=== PATIENT | male | born 1985 | race African-American/Black ===

== ENCOUNTER 2017-03-02 09:18 | Outpatient (RCR) | payer MEDICAID, SELFPAY ==
--- NOTE | 2017-03-02 10:24 | HMH.PTOPEV ---
Rehab Outpatient Evaluation Rehab OP Evaluation Start: 03/02/17 10:08 Freq: Status: Active Protocol: Document 03/02/17 10:08 ORTEGA (Rec: 03/02/17 10:24 PHODENVER [id number]) Electronically Signed By Nomi Clark, PT 03/02/17 10:08 Outpatient Therapy Subjective History Subjective History Pt presents with c/o pain in left knee, mostly posterior, x ~ 1 yr overall, but worse x 2 -3 mos with insidious onset of symptoms. He reports discomfort when running or jumping, not really pain, I just feel like I can't jump as high as I should be able to. He also reports pain is much worse the day after playing sports, especially after sitting for long periods. No significant PMH. Chief Complaint Pain Weakness Symptom Type Ache Symptoms Aggravated By Physical Activity Prior Functional Limitations None Current Functional Limitations Recreation Activity Symptom Description Intermittent Activity Dependent Level of pain today (0-10) 0 Pain scale - at its worst (0-10) 7 Hip/Knee Eval Gait Observation General Gait Pattern Observation No Deviations/Normal MMT left Hip Strength Reason Not Measured WFL Knee Extension Strength Grade 5 Normal Knee Flexion Strength Grade 4 Good Special Tests Knee Anterior Drawer Test Negative Left Knee Bounce Home Test Negative Left Damian 90/90 Test (PCL) Negative Left Knee Anterior Choco Test Negative Left Knee Pivot Shift Test Negative Left Knee Valgus Stress Test Negative Left Knee Varus Stress Test Negative Left Knee Bernie Test Negative Left Outpatient Therapy Assessment Impairments Problems/Impairmments Impaired Strength Impaired Recreational Activities Impaired Running Impaired Jumping Subjective C/O Pain Impaired Self Care/Self Management Prognosis Rehab Potential Good Clinical Impression Consistent with Diagnosis Yes Short Term Goals Number of Weeks 4 Increase Strength Yes: 4+/5 throughout left LE Return to Recreational Activities Yes Decrease Subjective C/O Pain
== END 2017-03-02 09:19 | disposition home or self-care (01) ==
LOC: PT 09:18
PROVIDERS: Family Provider Family Medicine; PCP Family Medicine; Visit Provider Family Medicine
DX: M25.562 Pain in left knee (principal)

== ENCOUNTER → 2018-11-23 10:01 | Outpatient (CLI) | payer OTHER, SELFPAY ==
[2018-11-24 18:58] LABS: Testosterone,Total 599 ng/dL (264-916)
== END ==
PROVIDERS: Visit Provider Family Medicine
DX: R68.82 Decreased libido (principal)
CPT/HCPCS: 36415; 84403

== ENCOUNTER 2020-05-02 16:53 | Emergency (ER) | payer OTHER, SELFPAY ==
[2020-05-02 17:10] VITALS: BP 145/95; PULSE 80; RESP 20; TEMP 35.9; O2SAT 98; BMI 26.7
--- NOTE | 2020-05-02 17:44 | HMH.EDUTC ---
[facility] [place] Disposition Clinical Impression: Strep pharyngitis Disposition: Home, Self-Care Condition on Discharge: Good Instructions: Strep Throat, DI for Strep Throat, Amoxicillin Additional Instructions: *If you did not take Penicillin shot or was unable to, start taking antibiotic immediately and make sure that you take it for the FULL length of time although you should start to feel better in 24-48 hours *change toothbrush and toothpaste 24-48 hours after starting to take antibiotics so you do not reinfect yourself Monitor Temp. Tylenol and/or Ibuprofen as needed. ER if fever is no less than 101 despite alternating Tylenol and Ibuprofen * Encourage fluids, water, Gatorade, powerade, pedialyte if infant/toddler/or child *Cold fluids, popsicles and ice cream may feel good on his throat Take medication as prescribed Return if needed Straight to ER if any life threatening symptoms Referrals: Steven Velasquez MD [Primary Care Provider] - As needed Time of Disposition: 21:44 Medical Decision Making - Josh Inquiry Pt receiving controlled substance: No Josh was queried for this patient: No Vital Signs: 05/02/20 17:10 05/02/20 18:13 Temperature 96.7 F L 96.7 F L Temperature Source Temporal Artery Scan Pulse Rate 80 Pulse Rate [Right Brachial] 80 Respiratory Rate 20 20 Blood Pressure 145/95 H Blood Pressure [Right Arm] 145/95 H Blood Pressure Mean [Right Arm] 111 Blood Pressure Source [Right Arm] Automatic Cuff Blood Pressure Position [Right Arm] Sitting 02 Sat by Pulse Oximetry 98 Oxygen Delivery Method Room Air - Lab Data Lab results reviewed: Yes: I reviewed the patient's lab results. Lab Results 05/02/20 16:55: Strep Scn Rapid Clinic Positive A Orders (Tests/Meds): ED MEDICATIONS Discontinued Medications Generic Name Dose Route Start Last Admin Trade Name Freq PRN Reason Stop Dose Admin Penicillin G Benzathine 1,200,000 unit 05/02/20 17:51 05/02/20 18:07 Penicillin G Benzathine 1,200,000 Units/2ml Syringe IM 05/02/20 17:52 1,200,000 unit ONCE ONE Administration Protocol [facility] [place] HPI - General Stated complaint: sore throat Time Seen by Provider: 05/02/20 17:44 Mode of Arrival: Ambulatory Source of Information: Patient Limitations: No Limitations Description of Symptoms (Recalled from Triage Doc. by RN): PATIENT C/O COUGH, RUNNY NOSE AND SORE THROAT. EXPOSURE TO STREP HEENT Symptoms (Recalled from RN notes): Yes Resp Symptoms (Recalled from RN notes): No Skin Symptoms (Recalled from RN notes): No MS Symptoms (Recalled from RN notes): No Functional Status (Recalled from RN notes): WNL - History of Present Illness Provider Complaint: Patient states that he was recently around family member that tested positive for strep throat States that his throat has been hurting and irritated and had a little cough and over all not feeling - Related Data Home Medications Medication Instructions Recorded Confirmed Vilazodone HCl [Viibryd 10mg 10 mg PO DAILY 05/02/20 05/02/20 Tablet] Allergies Allergy/AdvReac Type Severity Reaction Status Date / Time Sulfa (Sulfonamide Allergy Unknown Verified 08/28/17 17:37 Antibiotics) [SULFA (SULFONAMIDE ANTIBIOTICS)] - Worker's Comp Is this a Worker's Comp case?: No [facility] History - Hepatitis A Screen Drug use history?: No High risk sexual behaviors?: No History of sexually transmitted infection?: No Currently employed?: No Childcare worker?: No Do you have indoor plumbing?: Yes Do you have electricity?: Yes Attestation statement:: This patient has been screened for Hepatitis A risk factors. I have reviewed the patient's past medical history: Yes Medical History: Denies:: Anxiety, Depression, Diabetes Mellitus Type 1, Diabetes Mellitus Type 2 Laterality Cases: Bilateral: Tonsillectomy Other Surgeries: Yes: Other (tonsillectomy, vascectomy) - Social History Smoking Status: Never smoker Al
[2020-05-02 17:47] LABS: UTC Strep Screen (Rapid) Positive (Negative)
[2020-05-02 18:13] VITALS: BP 145/95; PULSE 80; RESP 20; TEMP 35.9; O2SAT 98
== END 2020-05-02 18:32 | disposition home or self-care (01) ==
PROVIDERS: Emergency Provider Nurse Practitioner; PCP Family Medicine
DX: J02.0 Streptococcal pharyngitis (principal); Z88.0 Allergy status to penicillin
CPT/HCPCS: 87880; 96372; 99202; G0463; J0561

== ENCOUNTER 2021-10-03 11:03 | Emergency (ER) | payer OTHER, SELFPAY ==
[2021-10-03 11:40] VITALS: BP 133/86; PULSE 104; RESP 19; TEMP 37.2; O2SAT 96; BMI 19.8
[2021-10-03 11:53] LABS: Adenovirus,PCR Not Detected (NotDetected); Bordetella Pertussis Not Detected (NotDetected); Chlamydophila Pneumoniae, PCR Not Detected (NotDetected); Coronavirus 19, PCR Not Detected (NotDetected); Coronavirus 229E Not Detected (NotDetected); Coronavirus NL63 Not Detected (NotDetected); Coronavirus OC43 Not Detected (NotDetected); Coronovirus HKU1,PCR Not Detected (NotDetected); Human Metapneumovirus Not Detected (NotDetected); Influenza A, PCR Not Detected (NotDetected); Influenza AH1, 2009 Not Detected (NotDetected); Influenza AH1, PCR Not Detected (NotDetected); Influenza AH3,PCR Not Detected (NotDetected); Influenza B, PCR Not Detected (NotDetected); Mycoplasma Pneumoniae, PCR Not Detected (NotDetected); Parainfluenza 1, PCR Not Detected (NotDetected); Parainfluenza 2, PCR Not Detected (NotDetected); Parainfluenza 3, PCR Not Detected (NotDetected); Parainfluenza 4, PCR Not Detected (NotDetected); Respiratory Syncytial Virus Not Detected (NotDetected)
[2021-10-03 12:00] LABS: UTC Strep Screen (Rapid) Positive (Negative)
--- NOTE | 2021-10-03 12:10 | HMH.EDUTC ---
[facility] [place] Disposition Clinical Impression: Strep pharyngitis Disposition: Home, Self-Care Condition on Discharge: Good Instructions: Strep Throat, DI for Strep Throat Additional Instructions: *Monitor Temp, Over the counter Motrin or Tylenol as directed/as needed Tylenol every 4 hours and Motrin every 6 hours (as long as your family doctor has told you that you can take it) for fever or pain. and straight to ER if unable to lower temp less than 101.0 after medication given *Warm salt water gargles may help to soothe the throat *Throat Lozenges *Warm fluids like tea with honey may help to soothe the throat *Sleep elevated *Humidifier/Vaporizer *If you did not take Penicillin shot or was unable to, start taking antibiotic immediately and make sure that you take it for the FULL length of time although you should start to feel better in 24-48 hours *change toothbrush and toothpaste 24-48 hours after starting to take antibiotics so you do not reinfect yourself Monitor Temp. Tylenol and/or Ibuprofen as needed. ER if fever is no less than 101 despite alternating Tylenol and Ibuprofen * Encourage fluids, water, Gatorade, powerade, pedialyte if /toddler/or child *Cold fluids, popsicles and ice cream may feel good on his throat Follow up IMMEDIATELY for new or worsening symptoms or no Noticeable improvement over the next 48-72 hours. 911 for difficulty breathing or swallowing You were tested for today for COVID19 your test result should be back in the next 24-48 hours, you may check your results on the [facility] My Health Portal Make sure to take your Vitamins Vit. C Vit D and Zinc if you can take them Prescriptions: methylPREDNISolone [Medrol 4mg tab] 4 mg PO DIRECTED #21 tab Transmission Status: Pending to [facility] Azithromycin [Z-Charlie 250mg Tab] 250 mg PO DIRECTED #6 tab Transmission Status: Pending to [facility] Referrals: Alicia Cline MD [Primary Care Provider] - As needed Forms: Work/School Release Medical Decision Making - Josh Inquiry Pt receiving controlled substance: No Josh was queried for this patient: No Vital Signs: 10/03/21 11:40 Temperature 98.9 F Temperature Source Oral Pulse Rate [Right Brachial] 104 H Respiratory Rate 19 Blood Pressure [Right Arm] 133/86 Blood Pressure Mean [Right Arm] 101 Blood Pressure Source [Right Arm] Automatic Cuff Blood Pressure Position [Right Arm] Sitting 02 Sat by Pulse Oximetry 96 Oxygen Delivery Method Room Air - Lab Data Lab results reviewed: Yes: I reviewed the patient's lab results. Lab Results 10/03/21 11:20: Strep Scn Rapid Clinic Positive A Orders (Tests/Meds): ORDERS Category Date Time Status Full Resp Panel w/COVID ([facility]) Routine Lab 10/03/21 11:20 Received [facility] [place] HPI - General Stated complaint: itchy throat, cough, phlem is dark yellow&bloody Time Seen by Provider: 10/03/21 12:10 Mode of Arrival: Ambulatory Source of Information: Patient Limitations: No Limitations Description of Symptoms (Recalled from Triage Doc. by RN): PATIENT C/O SORE THROAT AND CONGESTION HEENT Symptoms (Recalled from RN notes): Yes Resp Symptoms (Recalled from RN notes): No Skin Symptoms (Recalled from RN notes): No MS Symptoms (Recalled from RN notes): No Functional Status (Recalled from RN notes): WNL - History of Present Illness Provider Complaint: Patient states that he has been having sore throat, sinus congestion and pressure and cough States that today he was feeling worse so he came in to get checked out - Related Data Home Medications Medication Instructions Recorded Confirmed Vilazodone HCl [Viibryd 10mg 10 mg PO DAILY 05/02/20 05/02/20 Tablet] Previous Rx's Medication Instructions Recorded Azithromycin [Z-Charlie 250mg Tab] 250 mg PO DIRECTED #6 tab 10/03/21 methylPREDNISolone [Medrol 4mg 4 mg PO DIRECTED #21 tab 10/03/21 tab] Allergies Allergy/AdvReac Type Severity Reaction Statu
[2021-10-03 12:27] VITALS: BP 133/86; PULSE 104; RESP 19; TEMP 37.2; O2SAT 96
[2021-10-04 00:53] LABS: Rhinovirus/Enterovirus Detected (NotDetected)
== END 2021-10-03 12:30 | disposition home or self-care (01) ==
PROVIDERS: Emergency Provider Nurse Practitioner; PCP Family Medicine
DX: J02.0 Streptococcal pharyngitis (principal)
CPT/HCPCS: 87581; 87632; 87798; 87880; 99212; C9803; G0463; U0003; U0005

== ENCOUNTER 2023-07-30 10:56 | Emergency (ER) | payer OTHER, SELFPAY ==
--- NOTE | 2023-07-30 11:20 | EXP.UTC ---
Discharge Plan Disposition Patient Disposition: Home, Self-Care Condition: Good Prescriptions Prescriptions: New prednisone 10 mg tablet 10 mg PO BID 3 Days Qty: 6 0RF amoxicillin 875 mg tablet 875 mg PO Q12H Qty: 20 0RF [id number]-[id number] [Bromfed DM] 2-30-10 mg/5 mL Syrup 5 ml PO Q6H PRN (Reason: Cough) Qty: 240 0RF No Action valacyclovir 500 mg tablet 500 mg PO DAILY Referrals Follow up/Referrals: Alicia Cline MD [Primary Care Provider] - See instructions Activity Restrictions/Add. Instructions Additional Instructions/Restrictions: Drink plenty of fluids. Take tylenol or ibuprofen for pain or fever. Take the medications as directed. Follow up with your regular doctor. GO TO THE ER FOR ANY WORSENING SYMPTOMS Don't start the oral steroids (prednisone) until tomorrow since you had the shot her Clinical Impressions Clinical Impression: Pharyngitis, Sinusitis Instructions Patient Instructions: Sinusitis, DI for Sinusitis, Prednisone, Amoxicillin, Dexamethasone Injection Discharge ED Provider: Ronen Morgan [facility] General Stated complaint: sore throat, hoarseness Time Seen by Provider: 07/30/23 11:20 Related Data Home Medications Medication Instructions Recorded Confirmed valacyclovir 500 mg tablet 500 mg PO DAILY 07/30/23 07/30/23 Previous Rx's Medication Instructions Recorded amoxicillin 875 mg tablet 875 mg PO Q12H #20 tabs 07/30/23 [id number]-[id number]-VM 5 ml PO Q6H PRN Cough #240 mL 07/30/23 2 mg-30 mg-10 mg/5 mL oral syrup (Bromfed DM) prednisone 10 mg tablet 10 mg PO BID 3 days #6 tabs 07/30/23 Allergies Allergy/AdvReac Type Severity Reaction Status Date / Time Sulfa (Sulfonamide Allergy Unknown Verified 08/28/17 17:37 Antibiotics) [SULFA (SULFONAMIDE ANTIBIOTICS)] [facility] Disclaimer: The information contained in this section may have been updated after the patient was seen, as this information can be updated by other users. Medical History (Updated 07/30/23 @ 12:03 by Ronen Morgan APRN) Hyperlipidemia Surgical History (Updated 07/30/23 @ 11:45 by Roya Tate RN) History of tonsillectomy Social History Smoking Status: Never smoker alcohol intake: never current occupational status: other Travel in the last 8 weeks: None ROS Obtained: Yes All systems reviewed & no additional complaints except as documented Constitutional Constitutional: Reports poor appetite Eyes Eyes: Reports system reviewed and no additional complaints, except as documented ENT Ears, Nose, Mouth, and Throat: Reports as per HPI Cardiovascular Cardiovascular: Reports system reviewed and no additional complaints, except as documented and Denies chest pain Respiratory Respiratory: Denies shortness of breath, Denies chest congestion, Reports cough, Denies stridor and Denies wheezing Gastrointestinal Gastrointestingal: Reports system reviewed and no additional complaints, except as documented; Denies abdominal pain, diarrhea or vomiting Musculoskeletal Musculoskeletal: Reports system reviewed and no additional complaints, except as documented and Denies arthralgias Integumentary/Breasts Skin/Breast: Reports system reviewed and no additional complaints, except as documented and Denies rash Neurologic Neurologic: Denies paresthesias Allergic/Immunologic Allergic/Immunologic: Denies wheezing Physical Exam General General appearance: alert and in no apparent distress Head Head exam: atraumatic, normocephalic and normal inspection Eye Eye exam: Present normal appearance, PERRL and EOMI ENT ENT exam: Present mucous membranes moist and normal external ear exam Expanded ENT Exam TM/Canal exam: Bilateral TM: erythema and bulging Nose exam: Absent sinus tenderness Mouth exam: Present normal external inspection; Absent drooling Teeth exam: Present normal inspection Throat exam: Present tonsillar erythema, tonsillomegaly and tonsillar exudate Neck Neck exam: Present normal inspection, full ROM and trachea midline; Absent tenderness, meningismus or lymphadenopathy Chest Chest inspection: Present normal inspection and symmetric chest wall rise; Absent tenderness Respiratory Respiratory exam: Present normal lung sounds bilaterally; Absent respiratory distress, wheezes or stridor Cardiovascular Cardiovascular exam: Present regular rate and normal rhythm; Absent systolic murmur or diastolic murmur Abdominal Exam Abdominal exam: Present soft and normal bowel sounds; Absent distention, tenderness, guarding, rebound or rigidity Extremities Exam Extremities exam: Present normal inspection and normal capillary refill; Absent calf tenderness Back Exam Back exam: Present normal inspection and full ROM; Absent tenderness, CVA tenderness (R) or CVA tenderness (L) Neurological Exam Neurological exam: Present alert, oriented X3 and CN II-XII intact Psychiatric Psychiatric exam: Present normal affect and normal mood Skin Skin exam: Present warm, dry, intact and normal color Medical Decision Making Medical Records Medical records reviewed: No I reviewed the patient's medical records. Josh Inquiry Pt receiving controlled substance: No
[2023-07-30 11:25] VITALS: BP 129/82; PULSE 68; RESP 17; TEMP 36.7; O2SAT 97; BMI 28.1
[2023-07-30 11:34] LABS: UTC Strep Screen (Rapid) Negative (Negative)
[2023-07-30 11:55] VITALS: BP 129/82; PULSE 68; RESP 17; TEMP 36.7; O2SAT 97
[2023-07-30] MEDS: DEXAMETHASONE 4MG/ML 1ML VIAL 8 MG IM (11:55)
--- NOTE | 2023-08-08 09:45 | PC.NURSE ---
Reviewed strep confirmation culture which is negative. No further action is required.
== END 2023-07-30 12:09 | disposition home or self-care (01) ==
PROVIDERS: Emergency Provider Nurse Practitioner Family; PCP Family Medicine
DX: J01.90 Acute sinusitis, unspecified; J02.9 Acute pharyngitis, unspecified
CPT/HCPCS: 87880; 96372; 99212; 99214; G0463; J1100

== ENCOUNTER 2024-02-04 14:47 | Emergency (ER) | payer OTHER, SELFPAY ==
[2024-02-04 16:00] VITALS: BP 130/76; PULSE 112; RESP 19; TEMP 37.4; O2SAT 98; BMI 34.4
--- NOTE | 2024-02-04 16:18 | ED_ITS ---
Discharge Plan Disposition Patient Disposition: Home, Self-Care Condition: Good Referrals Follow up/Referrals: Alicia Cline MD [Primary Care Provider] - See instructions Activity Restrictions/Add. Instructions Additional Instructions/Restrictions: *Monitor Temp, Over the counter Motrin or Tylenol as directed/as needed Tylenol every 4 hours and Motrin every 6 hours (as long as your family doctor has told you that you can take it) for fever or pain. and straight to ER if unable to lower temp less than 101.0 after medication given *Warm salt water gargles may help to soothe the throat *Throat Lozenges? *Warm fluids like tea with honey may help to soothe the throat? *Sleep elevated *Humidifier/Vaporizer *Your throat swab was sent for culture. Those results are typically sent to your primary care. Be sure to follow up in 2-3 days with your family doctor/primary care physician if no improvement so they can review those result and treat if necessary. If you don?t have a primary care doctor, I recommend you get one but in the mean time, you will have to return to a walk in clinic Follow up IMMEDIATELY for new or worsening symptoms or no Noticeable improvement over the next 48-72 hours. 911 for difficulty breathing or swallowing Clinical Impressions Clinical Impression: Upper respiratory infection Instructions Patient Instructions: Sore Throat, DI for Cough -- Adult Print Language Print Language: Greenlandic Discharge ED Provider: Cathie Mead [facility] General Stated complaint: cough, bodyaches Mode of Arrival: Ambulatory Source of Information: Patient Limitations: No Limitations Time Seen by Provider: 02/04/24 16:18 Description of Symptoms (Recalled from Triage Doc. by RN): PATIENT C/O COUGH, CHILLS, BODY ACHES, AND SINUS PRESSURE SINCE LAST NIGHT HEENT Symptoms (Recalled from RN notes): Yes Resp Symptoms (Recalled from RN notes): Yes Skin Symptoms (Recalled from RN notes): No MS Symptoms (Recalled from RN notes): No Functional Status (Recalled from RN notes): WNL History of Present Illness Provider Complaint: Patient states that he started last night with sinus congestion and pressure, sore throat, body aches, chills and over all not feeling well States today he was still not feeling any better so he came in to get checked Related Data Allergies Allergy/AdvReac Type Severity Reaction Status Date / Time Sulfa (Sulfonamide Allergy Unknown Verified 08/28/17 17:37 Antibiotics) (SULFA (SULFONAMIDE ANTIBIOTICS)) Worker's Comp Is this a Worker's Comp case?: No [facility] Disclaimer: The information contained in this section may have been updated after the patient was seen, as this information can be updated by other users. Medical History (Updated 02/04/24 @ 16:40 by Adina Stratton APRN) Hyperlipidemia Surgical History (Updated 07/30/23 @ 11:45 by Roya Tate RN) History of tonsillectomy Social History Smoking Status: Never smoker alcohol intake: never current occupational status: other Travel in the last 8 weeks: None Have you lived/traveled outside [place] in past 30 days?: No Contact w/someone who lives/traveled outside [place] past 30 days?: No Exposure to someone with infectious disease in past 14 days?: No Do you have a fever (greater than 100.4 F or 38 C)?: No Have you tested positive for COVID-19: No Exposed to someone with COVID-19 in past 14 days?: No Do you have a sore throat?: No Do you have a cough?: No Do you have any weakness?: No Do you have any diarrhea?: No Are you experiencing any unusual bleeding?: No Do you have any muscle aches/pain?: No Do you have any abdominal pain?: No Are you experiencing loss of taste or smell?: No ROS Obtained: Yes All systems reviewed & no additional complaints except as documented and Yes Systems reviewed as appropriate & no additional complaints except as documented Constitutional Constitutional: Reports system reviewed and no additional complaints, except as documented, Reports as per HPI and Reports headache(s) ENT Ears, Nose, Mouth, and Throat: Reports system reviewed and no additional complaints, except as documented, Reports as per HPI, Reports headache(s), Reports nasal congestion, Reports sinus pressure and Reports sore throat Cardiovascular Cardiovascular: Reports system reviewed and no additional complaints, except as documented and Reports as per HPI Respiratory Respiratory: Reports system reviewed and no additional complaints, except as documented, Reports as per HPI, Denies shortness of breath, Denies chest congestion and Reports cough Musculoskeletal Musculoskeletal: Reports system reviewed and no additional complaints, except as documented and Reports as per HPI Neurologic Neurologic: Reports headache(s) Physical Exam General General appearance: alert and in no apparent distress ENT ENT exam: Present mucous membranes moist Expanded ENT Exam Nose exam: Present sinus tenderness Throat exam: Present other (Pharyngeal erythema noted with PND) Respiratory Respiratory exam: Present normal lung sounds bilaterally; Absent respiratory distress or wheezes Cardiovascular Cardiovascular exam: Present regular rate, normal rhythm and normal heart sounds Abdominal Exam Abdominal exam: Present soft and normal bowel sounds; Absent distention or tenderness Neurological Exam Neurological exam: Present alert, oriented X3 and normal gait Medical Decision Making Medical Records Screening: Per USPSTF and CDC recommendations, given the prevalence of disease in our region, it is our hospital?s policy to screen for HIV and viral Hepatitis for all patients aged 18 and over and those with ongoing risk factors. Josh Inquiry Pt receiving controlled substance: No Josh was queried for this patient: No Vital Signs: 02/04/24 16:00 Temperature 99.3 F Temperature Source Oral Pulse Rate [Left Brachial] 112 H Respiratory Rate 19 Blood Pressure [Left Arm] 130/76 Blood Pressure Mean [Left Arm] 94 Blood Pressure Source [Left Arm] Automatic Cuff Blood Pressure Position [Left Arm] Sitting 02 Sat by Pulse Oximetry 98 Oxygen Delivery Method Room Air Lab Data Lab results reviewed: Yes I reviewed the patient's lab results.
[2024-02-04 16:25] LABS: UTC Influenza A Antigen Negative (Negative); UTC Influenza B Antigen Negative (Negative)
[2024-02-04 16:36] LABS: UTC Strep Screen (Rapid) Negative (Negative)
[2024-02-04 16:40] VITALS: BP 130/76; PULSE 112; RESP 19; TEMP 37.4; O2SAT 98
[2024-02-04 16:44] LABS: Coronavirus 19, PCR Not Detected (NotDetected); Influenza A, PCR Not Detected (NotDetected); Influenza B, PCR Not Detected (NotDetected)
== END 2024-02-04 16:43 | disposition home or self-care (01) ==
PROVIDERS: Nurse Practitioner; Physician Assistant; Emergency Provider Nurse Practitioner Family; PCP Family Medicine
DX: J06.9 Acute upper respiratory infection, unspecified (principal)
CPT/HCPCS: 87636; 87804; 87880; 99213; G0381